=== PATIENT | female | born 1965 | race Caucasian/White ===

== ENCOUNTER 2018-09-08 22:01 | Emergency (ER) | payer OTHER ==
[~2018-09-08] VITALS: Ht 165.1 cm; Wt 61.2 kg
[~2018-09-08 22:01] MED LIST: KEPRA
[2018-09-08] MEDS ORDERED: [UNRECOGNIZED DRUG - REMARK] (22:24)
[2018-09-08] MEDS ORDERED: [UNRECOGNIZED DRUG - REMARK] (22:24)
[2018-09-08] MEDS ORDERED: [UNRECOGNIZED DRUG - REMARK] (22:24)
[2018-09-08] MEDS ORDERED: [UNRECOGNIZED DRUG - REMARK] (22:24)
--- NOTE | 2018-09-08 22:30 | NUR ---
PATIENT BIB [facility] FROM HOME FOR C/O SEIZURE. PER REPORT PATIENT PATIENT WAS FOUND ON THE FLOOR BY MOTHER. PATIENT WAS POSTICTAL. ARRIVED WITH 20 G ON LEFT HAND. NO DISTRESS UPON ARRIVAL
[2018-09-08] MEDS ORDERED: IV NORMAL SALINE 1000 ML BAG IV ONE (22:45)
[2018-09-08] MEDS ORDERED: ONDANSETRON 4 MG/2 ML VIAL IV ONE (22:45)
[2018-09-08] MEDS: LEVETIRACETAM IV 500 MG in IV DEXTROSE 5% 100 ML IV ONE ×2 (22:50→23:01)
[2018-09-08] MEDS ORDERED: ONDANSETRON 4 MG/2 ML VIAL ONE (22:51)
[2018-09-08] MEDS ORDERED: LEVETIRACETAM 500 MG/5 ML VIAL IV ONE (23:00)
[2018-09-08 23:01] LABS: BASOPHILS # (AUTO) 0.1 K/uL (0.0-8.0); BASOPHILS % (AUTO) 1.1 % (0.0-2.0); EOSINOPHILS # (AUTO) 0.2 K/uL (0.0-0.7); EOSINOPHILS % (AUTO) 2.7 % (0.0-7.0); HEMATOCRIT 34.4 % (31.2-41.9); HEMOGLOBIN 11.8 g/dL (10.9-14.3); LYMPHOCYTES # (AUTO) 1.7 K/uL (20.0-40.0); LYMPHOCYTES % (AUTO) 30.1 % (20.5-51.5); MEAN CORPUSCULAR HEMOGLOBIN 35.5 uug (24.7-32.8); MEAN CORPUSCULAR HGB CONC 34 g/dL (32.3-35.6); MEAN CORPUSCULAR VOLUME 103.9 fL (75.5-95.3); MONOCYTES # (AUTO) 0.3 K/uL (2.0-10.0); MONOCYTES % (AUTO) 5.8 % (0.0-11.0); NEUTROPHILS # (AUTO) 3.5 K/uL (1.8-8.9); NEUTROPHILS % (AUTO) 60.3 % (38.5-71.5); PLATELET COUNT (AUTO) 125 K/uL (179-408); RED BLOOD CELL COUNT(AUTO) 3.31 MIL/uL (3.63-4.92); WHITE BLOOD COUNT (AUTO) 5.8 K/uL (3.8-11.8)
[2018-09-08 23:08] LABS: CREATININE 1.1 mg/dL (0.6-1.3); POTASSIUM 3.4 mmol/L (3.5-5.1)
[2018-09-08 23:12] LABS: PHENYTOIN (DILANTIN) 9.7 ug/mL (10.0-20.0)
[2018-09-08 23:13] LABS: BILIRUBIN,DIRECT 0.4 mg/dL (0.0-0.2); BILIRUBIN,TOTAL 0.8 mg/dL (0.2-1.0); TOTAL PROTEIN, SERUM 7.1 g/dL (6.4-8.2)
[2018-09-08 23:28] LABS: ETHANOL < 3 MG/DL (0-0)
--- NOTE | 2018-09-08 23:28 | NUR ---
PATIENT C/O NAUSEA COMING BACK. DR MANZO AWARE
[2018-09-08] MEDS ORDERED: METOCLOPRAMIDE HCL 10 MG/2 ML VIAL IV ONE (23:30)
[2018-09-08] MEDS ORDERED: POTASSIUM CHLORIDE 10 MEQ TAB.PRT.SR PO ONE (23:30)
[2018-09-08] MEDS ORDERED: POTASSIUM CHLORIDE 20 MEQ TAB.PRT.SR ONE (23:33)
[2018-09-08] MEDS ORDERED: METOCLOPRAMIDE HCL 10 MG/2 ML VIAL ONE (23:33)
[2018-09-08] MEDS ORDERED: POTASSIUM CHLORIDE 10 MEQ TAB.PRT.SR ONE (23:35)
--- NOTE | 2018-09-08 23:36 | NUR ---
PATIENT OUT OF UNIT FOR CT SCAN VIA GURNY
[2018-09-09] MEDS ORDERED: PHENYTOIN SODIUM EXTENDED 100 MG CAPSULE.SA PO ONE ×3 (00:01→00:02)
--- NOTE | 2018-09-09 00:01 | NUR ---
LEVETIRACETAM IVPB COMPLETED
--- NOTE | 2018-09-09 00:40 | NUR ---
1st call placed to [facility] for CTHEAD reading.
--- NOTE | 2018-09-09 01:02 | NUR ---
IV removed. Catheter intact and site benign. Pressure and 4x4 gauze applied to site. No bleeding noted.
--- NOTE | 2018-09-09 01:17 | NUR ---
Patient discharged to home in stable conditon WITH FAMILY TAKING PATIENT HOME. Written and verbal after care instructions given. Patient verbalizes understanding of instructions. WALKED OUT OF ER WITH NO DISTRESS NOTED
[2018-09-09 01:18] VITALS: BP 128/88
== END 2018-09-09 01:19 | disposition home or self-care (01) ==
LOC: ER 22:01
DX: G40.909 Epilepsy, unspecified, not intractable, without status epilepticus (principal); E87.6 Hypokalemia; D69.6 Thrombocytopenia, unspecified; R94.5 Abnormal results of liver function studies; Z79.899 Other long term (current) drug therapy
CPT/HCPCS: 36415; 70450; 80048; 80076; 80185; 83690; 85025; 85730; 96365; 96375; 99284; G0480; J1953; J2405; J2765; J7060; A4663; J7030